=== PATIENT | male | born 1945 | race Two or more races ===

== ENCOUNTER 2020-02-16 06:40 | Emergency (ER) | payer SELFPAY ==
[2020-02-16 06:59] VITALS: BP 152/61; PULSE 112; RESP 26; TEMP 37.6; O2SAT 100
[2020-02-16 07:18] VITALS: BP 125/59; PULSE 94; RESP 18; O2SAT 100
[2020-02-16 07:50] LABS: Add Urine Microscopic? YES; Appearance Urine Cloudy (Clear); Bacteria Urine Trace /hpf; Bilirubin Urine Negative (Negative); Blood Urine 1+ (Negative); Color Urine Yellow (Yellow); Glucose Urine UA Negative (Negative); Ketones Urine Negative (Negative); Leukocyte Esterase Ur 3+ LEU/UL (Negative); Mucus Urine Rare /lpf; Nitrate Urine Positive (Negative); Protein Urine 1+ mg/dL (Negative); Squamous Epithelial Cell Urine Occasional /hpf (Few); Urobilinogen Urine Negative mg/dL (<2.0); WBC Urine >75 /hpf
--- NOTE | 2020-02-16 07:53 | ED.MALEGU ---
HPI - Male Genitourinary General Chief complaint: Urogenital-Male Stated complaint: urine frequency Time Seen by Provider: 02/16/20 07:04 Source: patient and family Mode of arrival: ambulatory Limitations: language barrier (, grandson interpreting) History of Present Illness HPI Narrative: This patient is a 74 year old gentleman who presents for evaluation of increased urinary frequency. His grandson is interpreting because we are unable to assess interpreter deaf using stratus. PAtient has been urinating every 30 minutes since last night. He denies having hematuria, dysuria, abdominal pain, back pain, nausea, vomiting. He reports his urine stream is normal. He denies history of any prostate issues or previous UTIs. Related Data Home Medications Medication Instructions Recorded Confirmed amlodipine 10 mg PO DAILY 02/16/20 atorvastatin 40 mg PO DAILY 02/16/20 lisinopril 10 mg PO DAILY 02/16/20 metformin 500 mg PO BID 02/16/20 Allergies Allergy/AdvReac Type Severity Reaction Status Date / Time No Known Allergies Allergy Verified 02/16/20 07:03 Review of Systems Review of Systems: All systems reviewed & are unremarkable except as noted in HPI and below Constitutional: Constitutional: Denies chills and Denies fever(s) Gastrointestinal: Gastrointestinal: Denies abdominal pain, Denies nausea and Denies vomiting Genitourinary: Genitourinary: Denies genital lesions, Denies genital pain and Denies dysuria PMFSH Past Medical History Medical History (Updated 02/16/20 @ 09:28 by Sonia Gutierrez MD) Diabetes mellitus Hypertension Surgical History Surgical History (Updated 02/16/20 @ 07:56 by Sonia Gutierrez MD) No significant past surgical history Social History Social History (Updated 02/16/20 @ 07:56 by Sonia Gutierrez MD) Smoking status: Never smoker Gender identity (if verbalized by the patient): Male Exam Narrative: Exam Narrative: GENERAL: Well-appearing, well-nourished, and in no acute distress. HEAD: Normocephalic, atraumatic EYES: PERRLA and EOMI, conjunctiva clear without discharge THROAT:Mucous membranes moist, Oropharynx normal without erythema, exudate, peritonsillar swelling or fluctuance NECK: Supple, without lymphadenopathy or mass RESPIRATORY: No respiratory distress, Airway patent, Respirations non-labored, Clear to auscultation without rales, rhonchi or wheeze HEART: Regular rate and rhythm. No murmur heard. Normal peripheral pulses. ABDOMEN: Soft, nontender, nondistended, normal active bowel sounds. No masses. No rebound or guarding, No organomegaly. EXTREMITIES: No edema, normal strength with full range of motion. SKIN: Warm, dry, normal color without rash NEURO: Alert and oriented x3. CN 2-12 grossly intact. No focal deficits. PSYCH: Normal mood and affect. Course Reevaluation(s) Reevaluation #1: I Discussed with patient and family that he has a urinary tract infection and kidney disease. He was given a dose of antibiotics in ER. He will be discharge home with prescriptions. [place] is from out [place] town. I discussed with family return precautions. Date: 02/16/20 Time: 09:26 Vital Signs Vital signs: Vital Signs Temperature 99.6 F 02/16/20 06:59 Pulse Rate 112 H 02/16/20 06:59 Respiratory Rate 26 H 02/16/20 06:59 Blood Pressure 152/61 H 02/16/20 06:59 Pulse Oximetry 100 02/16/20 06:59 Temperature 99.6 F 02/16/20 06:59 Pulse Rate 88 02/16/20 09:43 Respiratory Rate 18 02/16/20 09:43 Blood Pressure 135/64 02/16/20 09:43 Pulse Oximetry 100 02/16/20 09:43 MDM - Male Genitourinary Lab Data Attestation: I reviewed the patient's lab results. Result diagrams: 02/16/20 07:48 02/16/20 07:48 Labs: Lab Results 02/16/20 02/16/20 02/16/20 Range/Units 07:04 07:48 07:48 WBC 13.9 H (4.5-10.0) K/mm3 RBC 3.39 L (4.6-6.20) M/mm3 Hgb 10.6 L (14.0-18.0) g/dL Hct 31.1 L (42.0-
[2020-02-16 07:56] LABS: Basophils Percent Auto 0.1 % (0.2-1.2); Eosinophils Percent Auto 0.1 % (0-4.4); Hematocrit 31.1 % (42.0-52.0); Hemoglobin 10.6 g/dL (14.0-18.0); Immature Granulocyte Absolute 0.12 K/mm3 (0.00-0.031); Immature Granulocyte Percent A 0.9 % (0-0.5); Lymphocytes Absolute Auto 0.58 K/mm3 (0.9-3.2); Lymphocytes Percent Auto 4.2 % (18.3-44.2); Mean Corpuscular HGB Conc 34.1 g/dl (32-36); Mean Corpuscular Hemoglobin 31.3 pg (26-34); Mean Corpuscular Volume 91.7 fl (80-100); Mean Platelet Volume 11.7 fl (7.4-10.4); Monocytes Absolute Auto 1.3 K/mm3 (0.1-0.6); Monocytes Percent Auto 9.3 % (2.6-8.5); Neutrophils Absolute Auto 11.9 K/mm3 (1.3-6.7); Neutrophils Percent Auto 85.4 % (45.5-73.1); Platelet Count Result 156 k/mm3 (150-375); Red Blood Count 3.39 M/mm3 (4.6-6.20); Red Cell Distribution Width 12.9 % (11.5-14.5); White Blood Count 13.9 K/mm3 (4.5-10.0)
[2020-02-16 08:08] LABS: Alanine Aminotransferase 29 U/L (4-50); Albumin Level 3.8 g/dL (3.5-5.1); Alkaline Phosphatase 103 U/L (38-126); Anion Gap 8 mmol/L (8-16); Aspartate Amino Transferase 38 U/L (17-59); Bilirubin,Total 0.8 mg/dL (0.2-1.3); Blood Urea Nitrogen 30 mg/dL (9-20); Calcium 9.3 mg/dL (8.4-10.2); Carbon Dioxide 24 mmol/L (22-30); Chloride 100 mmol/L (98-107); Estimated CRCL calculation 24 ml/min; Estimated Glomerular Filt Rate 33; Glucose 137 mg/dL (75-110); Potassium 4.2 mmol/L (3.4-5.0); Sodium 132 mmol/L (137-145)
[2020-02-16 08:09] LABS: Lactic Acid Reflex 0.9 mmol/L (0.7-2.1)
[2020-02-16 09:43] VITALS: BP 135/64; PULSE 88; RESP 18; O2SAT 100
== END 2020-02-16 09:44 | disposition home or self-care (01) ==
PROVIDERS: Emergency Medicine; Emergency Provider General Practice
DX: N39.0 Urinary tract infection, site not specified (principal); N28.9 Disorder of kidney and ureter, unspecified; I10 Essential (primary) hypertension; E11.9 Type 2 diabetes mellitus without complications; Z79.4 Long term (current) use of insulin
CPT/HCPCS: 36415; 80053; 81001; 83605; 85025; 87077; 87086; 87088; 87186; 96365; 99284; J0696